=== PATIENT | female | born 1975 ===

== ENCOUNTER 2017-06-29 07:11 | Day surgery (SDC) | payer MEDICAID ==
--- NOTE | 2017-06-28 20:44 | PDGENHP ---
History and Physical - Chief Complaint LEFT HIP PAIN - History of Present Illness Diagnosis: 1. ~~Bilateral~Hip Dyplasia; LEFT SIDE SYMPTOMATIC 2. ~~Left~Early Osteoarthritis 3. ~~Bilateral~Femoroacetabular impingement (ABDIFATAH) Cam type, with~resultant labral tear 4. ~~Clinical suspicion of Antetorsion HISTORY OF PRESENT ILLNESS: Eleanoris a 41 y.o.~very ~active female~who I have had the pleasure to consult on today. I have enjoyed meeting her. She~lives in [place]. 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 ~She~is ; she~has three~children. ~lEeanor enjoys golf, weight lifting, exercise. Katie's left~hip pain started 6 years ago, with some~recalled trauma or injury, in which she was competing in a "mud run" and her left hip "locked up", and with no~previous complaints. Eleanorhas~a known history of hip dysplasia. ~~She underwent surgical procedure to address dysplasia in 1978. Presentation today is of anterolateral left~hip pain. ~Katie also notes radiating pain along her quadricep muscle into her knee.~~The hip does~wake her~ at night and does~click and catch on her. Sitting does not present a problem~ for her. Eleanordoes not~report suffering from lower back pain episodes. ~Katie does note "high glut" discomfort and pain. Eleanorhas not~participated in physical therapy and has not~tried other conservative measures. She~has not~received sufficient symptomatic improvement. ~She had cortisone injection into Left GT 6 yrs ago Katie~has~utilized medication for pain management, including Naproxen. Eleanorhas used medication for intermittently since March 2017, when she obtained a prescription from the ED.. Eleanordenies issues with the right~hip. ~ Eleanorunderstands that she~has a hip and pelvis problem which should be researched and wishes to get a better understanding of her~hip status, followed by an establishment of a treatment strategy, hoping she~would be able to get back to her~well being active life. History: Past medical history: ~ None which is relevant Relevant familial history: None which is relevant Past surgical history: No. Surgery Anesthesia Year Outcome 1 Left Knee GA 1992 Great 2 pediatric Pelvic procedure for hip dysplasia GA 1978 Good Eleanordenies problematic issues with general anesthesia in the past. I have reviewed, verified and agree with the past medical, surgical, family and social history. Current Medications:~has a current medication list which includes the following prescription(s): bupropion hcl, dextroamphetamine-amphetamine, gabapentin, and naproxen. ALLERGIES:~has No Known Allergies. Objective: Physical Examination: Eleanoris 5~feet 2~inches tall and weighs 134~Lbs. Eleanoris AAO x3; she~is well- nourished, in NAD. Skin is warm and dry. ~Breathing is non-labored. ~CV with RRR by pulse. Abdomen is soft, NTND. Currently, she~walks with a abnormal antalgic gait.~gait. Trendelenburg sign is negative~and proprioception is reduced, both~sides. She~presents with mild~signs of joint laxity. Beightons Score: 5 (knees included ) Lower spine examination is negative~for sciatic or femoral nerve irritation with negative~SLR &~femoral stretch tests. Range of motion of the spine is normal~for flexion, extension, and rotations, with no~associated pain. Strength, Sensation and pulses are normal - bilaterally Ankles and knees exams are normal~and no~mal-alignment is evident. She~has~right~1~cm short leg length discrepancy. Thigh circumference is symmetric~with no evidence for muscle atrophy~on both~ sides. Hip ROM (degrees): FL ER At 90~hip FL IR At 90~hip FL AB AD EX IR Neutral hip ER Neutral hip R 110 50 45 45 10 10 60 15 L 95 (pain) 30 30 40 10 10 60 10 Specific hip and pelvis tests: Impingement Test AMBER Roll Add. Longus R Negative Negative Negative Negative L +++ +++ Negative Negative Glut. Med ITB Posterior Imp R Negative 5/5 strength Negative 5/5 strength Negative L +++ 5/5 strength ++ 4+/5 strength Negative Squeeze test measured normal Bony Symphysis pubis is pain free~to touch while concentric activity of the rectus abdominis, does not~produce pain at its insertion. Ilio Psos specific tests are positive for pain during cycling for the left hip~ and no snap HF has weakness and pain the left hip. Posterior~capsule tenderness LEFT Greater trochanteric burse is pain free~on both hips. Piriformis tests: FAIR is negative, with no~local signs of neuritis related to sciatic nerve. SIJs examination is produces pain on left side~with normal~AMBER in relation and local tenderness. Hamstrings tests are negative~functional contraction and negative~tendinopathy both hips. On a daily basis, the following percentages reflect Katie's overall total pain: Deep hip: 70% Glut: 30% Imaging: Radiology studies which I have personally reviewed, analyzed and measured are below: XR: AP of the hip and pelvis: Performed in a good~technique Coccyx to pubic symphysis distance 1.1~cm. 0~degrees [place] Lines are interrupted ON LEFT Minimal~Pathological signs are seen in the Symphysis Pubis. Minimal~Pathological signs are seen at the Ischial tuberosity. ~ Specific measurements show: NSA~ LCE Sourcil~Angle Sharp's angle Lat. Cam Lat. Pincer C.Over~sign Head~Coverage % ATDmm R N 25 2 45 + - - 82 N L N 20 18 42 + - - 64 N Pos. wall sign ISS NAD ~~Dysplasia Comments R Negative Negative 18.4~mm ++ L Negative Negative 16~mm ++ Sclerosis Sup. Lat. OA Cysts Joint Space-WBZ Joint Space-Medial R + + Negative 5.8~mm 5.3~mm L ++ + Negative 2.9~mm 3.1~mm X Table lateral: Anterior cam lesion is seen~on both hips. Alpha Angle: ~ Right 50~dergrees Left 74~degrees Impression and plan: Eleanoris a 41 y.o.~active female~suffering from symptomatic Left~hip pain due to Left~Early Osteoarthritis as a result of Left~Hip Dyplasia,~causing significant disability to her~and altering her~sport and life activities. Physical examination, imaging, and her~story correspond with the diagnosis mentioned above. We explained that a hip preservation procedure (arthroscopy followed by AVINASH) might serve as a bridging procedure to try and buy as much time as possible, keeping her~[place] joint before joint replacement would be unavoidable. With that in mind, the outlined treatment options are: (1) To wait for THR utilizing pain medication, intra articular injections and lifestyle modification (to avoid or reduce symptoms); (2) THR now as an end-point procedure understanding the life-modifications associated with this procedure regarding activity level; or (3) Hip preservation surgery, specifically hip arthroscopy followed by a pelvic realignment procedure (AVINASH), to address labral, cartilage and bony pathology. This will also try to minimize the dysplastic-related stress placed on the joint due to the insufficient coverage; or (4) Hip preservation surgery, specifically hip arthroscopy, to address labral, cartilage and bony pathology (with the possibility of reconstructing the labrum if needed). These last two choices come with the understanding of what is outlined above, specifically that this may not work as it usually does with biologically more preserved joints, and that based on her~age, gender, and dysplastic characteristics, the results are less reproducible than in younger subjects. Additionally, these surgeries do not eliminate the possibility for future THR. If the hip preservation techniques fail to yield the expected results, THR can be done promptly. Eleanorwill review the info presented. In order to better evaluate the soft tissues and cartilage of the hip joint, I will order an MRI scan. We will see her in the clinic after the MRI to determine whether or not she is a good surgical candidate.~~ Eleanorwill contact us if she~wishes to pursue further treatment in the future. Eleanoris happy with this plan. I have also supplied her~with handouts, outlining the expected surgical treatment and rehab involved. I wish~Katie~all the best, ~~ Radha Carson ATC History Information - Allergies/Home Medication List Allergies/Adverse Reactions: No Known Allergies Allergy (Verified 06/23/17 12:53) Home Medications: Adderall 10 MG (*) 06/23/17 [Last Taken Unknown] Gabapentin 06/23/17 [Last Taken Unknown] Herbals/Supplements -Info Only 06/23/17 [Last Taken 06/23/17] Wellbutrin Xl 06/23/17 [Last Taken Unknown] I have personally reviewed and updated: medical history - Social History Smoking Status: Former smoker Review of Systems Review of Systems: Physical Exam Physical Exam:
[2017-06-29] MEDS ORDERED: BUPIVACAINE 0.25% 30 ML SDV ONE (07:23)
[2017-06-29] MEDS ORDERED: EPINEPHrine 30 MG/30 ML MDV (0.1 MG/0.1 ML) ONE (07:23)
[2017-06-29] MEDS ORDERED: PREGABALIN 150 MG CAP PO ONE (07:52)
[2017-06-29] MEDS ORDERED: ACETAMINOPHEN 500 MG TAB PO ONE (07:52)
[2017-06-29] MEDS ORDERED: ceFAZolin 2 GM/SWFI 2 GM/20 ML SYR IVP ONE (07:52)
[2017-06-29] MEDS ORDERED: LR 1,000 ML IV ONE (07:53)
[2017-06-29] MEDS ORDERED: LIDOCAINE 1% 2 ML INJ ID PRN (07:53)
[2017-06-29] MEDS ORDERED: MIDAZOLAM 2 MG/2 ML VIAL IVP ONE (08:40)
--- NOTE | 2017-06-29 08:41 | PDANEPAE ---
ANE History of Present Illness left hip scope ANE Past Medical History - Cardiovascular History Hx Hypertension: No Hx Arrhythmias: No Hx Chest Pain: No Hx Coronary Artery / Peripheral Vascular Disease: No Hx CHF / Valvular Disease: No Hx Palpitations: No - Pulmonary History Hx COPD: No Hx Asthma/Reactive Airway Disease: No Hx Recent Upper Respiratory Infection: No Hx Oxygen in Use at Home: No Hx Sleep Apnea: No Sleep Apnea Screening Result - Last Documented: Negative - Neurologic History Hx Cerebrovascular Accident: No Hx Seizures: No Hx Dementia: No - Endocrine History Hx Diabetes: No - Renal History Hx Renal Disorders: No - Liver History Hx Hepatic Disorders: No - Neurological & Psychiatric Hx Hx Neurological and Psychiatric Disorders: Yes Neurological / Psychiatric History Comment: anxiety. depression - Cancer History Hx Cancer: No - Congenital Disorder History Hx Congenital Disorders: Yes Congenital History Comment: hip dysplasia - GI History Hx Gastrointestinal Disorders: No - Other Health History Other Health History: none - Chronic Pain History Chronic Pain: Yes (left hip) - Surgical History Prior Surgeries: 06/29/17 left hip scope/ labral repair with Deborah-Foreign. hernia surgery 03/2017. original hip dysplasia surgery 1978. left knee scope. breast implants ANE Review of Systems Review of systems is: negative Review of Systems: - Exercise capacity Exercise capacity: >=4 METS METS (RN): 5 METS ANE Patient History - Allergies Allergies/Adverse Reactions: No Known Allergies Allergy (Verified 06/23/17 12:53) - Home Medications Home Medications: Adderall 10 MG (*) 06/23/17 [Last Taken 06/28/17] Gabapentin 06/23/17 [Last Taken 06/28/17] Herbals/Supplements -Info Only 06/23/17 [Last Taken 06/23/17] Wellbutrin Xl 06/23/17 [Last Taken 06/28/17] - NPO status NPO Status: no food or drink >8 hours NPO Since - Liquids (Date): 06/28/17 NPO Since - Liquids (Time): 22:00 NPO Since - Solids (Date): 06/28/17 NPO Since - Solids (Time): 18:30 - Anes Hx Anes Hx: no prior problems - Smoking Hx Smoking Status: Former smoker - Alcohol Use Alcohol Use: Occasionally - Family Anes Hx Family Anes Hx: none Family Hx Anesthesia Complications: none ANE Labs/Vital Signs - Vital Signs Vital Signs: reviewed preoperatively; see RN documention for details Blood Pressure: 107/67 Heart Rate: 53 Respiratory Rate: 20 O2 Sat (%): 98 Height: 157.48 cm Weight: 58.513 kg ANE Physical Exam - Airway Mallampati Score: Class 2 - Pulmonary Pulmonary: no respiratory distress - Cardiovascular Cardiovascular: regular rate and rhythym - ASA Status ASA Status: I ANE Anesthesia Plan Anesthesia Plan: general endotracheal anesthesia
[2017-06-29] MEDS ORDERED: fentaNYL 100 MCG/2 ML INJ ONE ×2 (08:45→12:54)
[2017-06-29] MEDS ORDERED: PROPOFOL 200 MG/20 ML VIAL ONE (08:45)
[2017-06-29] MEDS ORDERED: ROCURONIUM 100 MG/10 ML VIAL ONE (08:45)
[2017-06-29] MEDS ORDERED: LIDOCAINE 2% 5 ML SDV ONE (08:45)
[2017-06-29] MEDS ORDERED: REMIFENTANIL HCL 1 MG VIAL ONE ×2 (08:56→10:42)
[2017-06-29] MEDS ORDERED: DEXAMETHASONE 4 MG/ML VIAL ONE ×2 (09:12)
[2017-06-29] MEDS ORDERED: PROPOFOL/EMULSION 500 MG/50 ML BOTTLE IV ONE ×2 (09:12→10:42)
[2017-06-29] MEDS ORDERED: KETOROLAC 30 MG/1 ML SDV ONE (11:54)
[2017-06-29] MEDS ORDERED: ONDANSETRON 4 MG/2 ML VIAL ONE ×2 (11:54→16:02)
[2017-06-29] MEDS ORDERED: ceFAZolin 1 GM VIAL ONE ×2 (12:52)
[2017-06-29] MEDS ORDERED: HYDROmorphONE/DILAUDID 1 MG/ML INJ IVP PRN (13:12)
[2017-06-29] MEDS ORDERED: ONDANSETRON 4 MG/2 ML VIAL IVP PRN (13:12)
[2017-06-29] MEDS ORDERED: HYDROCODONE/APAP 5/325 TAB PO PRN (13:12)
[2017-06-29] MEDS ORDERED: fentaNYL 100 MCG/2 ML INJ IVP PRN (13:12)
[2017-06-29] MEDS ORDERED: NALOXONE HCL 0.4 MG/ML INJ IVP PRN (13:12)
[2017-06-29] MEDS ORDERED: DEXAMETHASONE 4 MG/ML VIAL IVP PRN (13:12)
[2017-06-29] MEDS ORDERED: ALBUTEROL 3 ML DEYVIAL IH PRN (13:12)
[2017-06-29] MEDS ORDERED: PROMETHAZINE HCL 25 MG/ML INJ IVP PRN (13:12)
--- NOTE | 2017-06-29 13:13 | POSTANESTH ---
Post Anesthetic Evaluation Cardiovascular Status: Normal, Stable Respiratory Status: Normal, Stable Level of Consciousness/Mental Status: Can Participate in Eval Pain Control: Adequate, Prn Tx Ordered Nausea/Vomiting Control: Adequate, Prn Tx Ordered Complications Possibly Related to Anesthesia: None Noted
[2017-06-29] MEDS: MEPERIDINE 25 MG/ML SYR IVP PRN ×3 (13:18→14:17)
[2017-06-29] MEDS ORDERED: MEPERIDINE 25 MG/ML SYR ONE ×2 (13:18→14:17)
[2017-06-29] MEDS ORDERED: DIAZEPAM 5 MG/ML 1 ML SYR ONE (13:36)
[2017-06-29] MEDS: DIAZEPAM 5 MG/ML 1 ML SYR IVP PRN ×2 (13:36→13:48)
[2017-06-29] MEDS ORDERED: OXYCODONE/APAP 5/325 TAB ONE ×2 (14:08→15:00)
[2017-06-29] MEDS: OXYCODONE/APAP 5/325 TAB PO PRN ×2 (14:09→15:10)
[2017-06-29 14:12] VITALS: O2SAT 100
[2017-06-29 14:45] VITALS: BP 117/86; PULSE 84; RESP 15
[2017-06-29 15:38] VITALS: TEMP 98.1
== END 2017-06-29 16:20 | disposition home or self-care (01) ==
LOC: FSGY 07:11
PROVIDERS: ATTEND Orthopaedic Surgery Sports Medicine
DX: M25.852 Other specified joint disorders, left hip (principal); M16.12 Unilateral primary osteoarthritis, left hip; Q65.89 Other specified congenital deformities of hip; F17.200 Nicotine dependence, unspecified, uncomplicated
CPT/HCPCS: C1713; J0171; J0690; J1100; J1885; J2175; J2250; J2405; J2704; J3010; J3360